=== PATIENT | male | born 1985 ===

== ENCOUNTER 2017-09-21 19:04 | Emergency (ER) | payer OTHER ==
[2017-09-21] MEDS ORDERED: Morphine 4 mg/ml ISec IVP STA (19:13)
[2017-09-21] MEDS ORDERED: Morphine 4 mg/ml ISec ONE (19:24)
--- NOTE | 2017-09-21 19:43 | ED PDOC ---
Arrival/HPI - General Time Seen by Provider: 09/21/17 19:13 Historian: Patient - History of Present Illness Narrative History of Present Illness (Text): 09/21/17 19:41 32yo male with no Past medical history bib EMS for left ankle injury s/p trauma. Patient states he injured his ankle minutes [employer] during skateboarding. He did not take any medication for pain. States he is unable to bear weight on the leg. Denies hitting his head any where. Denies LOC, focal weakness, any other complaint. Past Medical History - Provider Review Nursing Documentation Reviewed: Yes Family/Social History - Physician Review Nursing Documentation Reviewed: Yes Family/Social History: Unknown Family HX Allergies/Home Meds Allergies/Adverse Reactions: Allergies No Known Allergies Allergy (Verified 09/21/17 19:13) Review of Systems - Physician Review All systems were reviewed & negative as marked: Yes - Review of Systems Constitutional: Normal Eyes: Normal ENT: Normal Respiratory: Normal Cardiovascular: Normal Gastrointestinal: Normal Genitourinary Male: Normal Musculoskeletal: Arthralgias (LEft ankle) Skin: Normal Neurological: Normal Endocrine: Normal Hemo/Lymphatic: Normal Psychiatric: Normal Physical Exam Vital Signs Reviewed: Yes Vital Signs Temp Pulse Resp BP Pulse Ox 09/21/17 21:34 74 18 147/92 H 100 09/21/17 20:45 98.6 F 77 18 150/97 H 09/21/17 19:46 98.7 F 80 20 151/87 H 99 Temperature: Afebrile Blood Pressure: Normal Pulse: Regular Respiratory Rate: Normal Appearance: Positive for: Well-Appearing, Non-Toxic, Comfortable Pain Distress: None Mental Status: Positive for: Alert and Oriented X 3 - Systems Exam Head: Present: Atraumatic, Normocephalic Pupils: Present: PERRL Extroacular Muscles: Present: EOMI Conjunctiva: Present: Normal Mouth: Present: Moist Mucous Membranes Neck: Present: Normal Range of Motion Respiratory/Chest: Present: Clear to Auscultation, Good Air Exchange. No: Respiratory Distress, Accessory Muscle Use Cardiovascular: Present: Regular Rate and Rhythm, Normal S1, S2. No: Murmurs Abdomen: No: Tenderness, Distention, Peritoneal Signs Back: Present: Normal Inspection Upper Extremity: Present: Normal Inspection. No: Cyanosis, Edema Lower Extremity: Present: NORMAL PULSES, Tenderness (Left ankle), Deformity ( LEft ankle), Neurovascularly Intact, Other (Superficial abrasion noted over left lateral malleolus). No: Edema Neurological: Present: GCS=15, CN II-XII Intact, Speech Normal Skin: Present: Warm, Dry, Normal Color. No: Rashes Psychiatric: Present: Alert, Oriented x 3, Normal Insight, Normal Concentration Medical Decision Making ED Course and Treatment: 09/21/17 20:17 PT present with stated history. Deformed left ankle was noted and pt was seen on arrival. His pain was controlled with morphine in emergency department. He was neurologically intact. pedis/posterior pulse was intact. Abrasion cleansed and bacitracine applied and dressed Left ankle xray FINDINGS: Bones/joints: There is a dislocation of the midfoot and to the medial ankle. The tibiotalar articulation is. intact. The midfoot and forefoot are dislocated at the level of the navicular and cuboid are bones. No acute fractures are seen. Orthopedic consultation is recommended Soft tissues: Medial ankle edema is present. IMPRESSION: 1. LEFT Mid foot medial dislocation as described. 2. Negative for acute fracture. 3. Medial ankle soft tissue edema 09/21/17 20:55 Ankle dislocation was reduced using a conscious sedation. 20mg mg of etomidate was used and pt was monitored, hydrated and 3L of NC placed. Dislocation was reduced by Dr. White . S/p reduction he remained NVI. posterior/ pedis pulse remain intact. soft tissue swelling of ankle was noted. Joens wrap and Air cast was placed. On re evaluation he was AAO x3 and hemodynamically stable. Post reduction ankle xray ordered 09/21/17 21:20 09/21/17 21:37 Ankle dislocation looked reduced. Crutches given and pt was advised to RICE ankle and f/u with ortho - Lab Interpretations Lab Results: 09/21/17 19:20 09/21/17 19:20 Lab Results 09/21/17 19:20: PT 11.1, INR 0.97, APTT 31.3 09/21/17 19:20: Sodium 142, Potassium 3.8, Chloride 101, Carbon Dioxide 28, Anion Gap 16, BUN 18, Creatinine 1.0, Est GFR ( Amer) > 60, Est GFR (Non- Af Amer) > 60, Random Glucose 104, Calcium 9.1, Total Bilirubin 0.5, AST 56, ALT 49, Alkaline Phosphatase 74, Total Protein 8.2, Albumin 4.6, Globulin 3.6, Albumin/Globulin Ratio 1.3 09/21/17 19:20: WBC 9.4, RBC 4.80, Hgb 13.7 L, Hct 39.8 L, MCV 82.9, MCH 28.5, MCHC 34.4, RDW 12.7, Plt Count 259, MPV 10.5, Gran % 44.9 L, Lymph % (Auto) 41.7 H, [place] % (Auto) 8.1 H, Eos % (Auto) 4.8, Baso % (Auto) 0.5, Gran # 4.22, Lymph # (Auto) 3.9 H, [place] # (Auto) 0.8 H, Eos # (Auto) 0.5, Baso # (Auto) 0.05 - RAD Interpretation Radiology Orders: 09/21/17 19:22 ANKLE LEFT 3 VIEWS ROUTINE [RAD] Stat 09/21/17 19:23 TIBIA FIBULA LEFT [RAD] Stat 09/21/17 20:54 ANKLE LEFT 3 VIEWS ROUTINE [RAD] Stat - Medication Orders Current Medication Orders: Discontinued Medications Etomidate (Amidate) 15 mg IVP STAT STA Stop: 09/21/17 20:18 Etomidate (Amidate) 20 mg IVP STAT STA Stop: 09/21/17 20:18 Last Admin: 09/21/17 21:32 Dose: 20 mg IVP Administration Document 09/21/17 21:32 EQ (Rec: 09/21/17 21:32 EQ [id number]) Charges for Administration # of IVP Administrations 1 Morphine Sulfate (Morphine) 4 mg IVP STAT STA Stop: 09/21/17 19:14 Last Admin: 09/21/17 19:49 Dose: 4 mg MAR Pain Assessment Document 09/21/17 19:49 EQ (Rec: 09/21/17 19:50 EQ [id number]) Pain Reassessment Is this a pain reassessment? No Sleep Is patient sleeping during reassessment? No IVP Administration Document 09/21/17 19:49 EQ (Rec: 09/21/17 19:50 EQ [id number]) Charges for Administration # of IVP Administrations 1 Disposition/Present on Arrival - Present on Arrival Any Indicators Present on Arrival: No History of DVT/PE: No History of Uncontrolled Diabetes: No Urinary Catheter: No History of Decub. Ulcer: No History Surgical Site Infection Following: None - Disposition Have Diagnosis and Disposition been Completed?: Yes Diagnosis: Ankle dislocation Disposition: HOME/ ROUTINE Disposition Time: 21:40 Patient Plan: Discharge Patient Problems: Current Active Problems Problem Status Onset Ankle dislocation Acute Condition: STABLE Discharge Instructions (ExitCare): Ankle Dislocation Additional Instructions: Follow up with your doctor/orthopedist Rest, Ice, compress and elevate ankle Return to emergency department for any new or worsening symptoms Prescriptions: Ibuprofen [Motrin Tab] 600 mg PO Q6 #15 tab Referrals: PCP,NO [Primary Care Provider] - Follow up with primary Mumtaz Roth III, MD [Medical Doctor] - Follow up with primary Forms: WORK NOTE
[2017-09-21 19:47] LABS: BASO # 0.05 K/mm3 (0.0-2.0); BASO % 0.5 % (0.0-3.0); EOS # 0.5 (0.0-0.7); EOS % 4.8 % (1.5-5.0); GRAN # 4.22 (1.4-6.5); GRAN % 44.9 % (50.0-68.0); HEMOGLOBIN 13.7 g/dL (14.0-18.0); LYMPH # 3.9 (1.2-3.4); LYMPH % 41.7 % (22.0-35.0); MEAN CELL VOLUME 82.9 fl (80.0-105.0); MEAN CORPUSCULAR HEMOGLOBIN 28.5 pg (25.0-35.0); MEAN CORPUSCULAR HGB CONC 34.4 g/dl (31.0-37.0); MEAN PLATELET VOLUME 10.5 fl (7.0-11.0); MONO # 0.8 (0.1-0.6); MONO % 8.1 % (1.0-6.0); RBC 4.8 10^6/uL (3.5-6.1); RED CELL DISTRIBUTION WIDTH 12.7 % (11.5-14.5); WHITE BLOOD COUNT 9.4 10^3/ul (4.5-11.0)
[2017-09-21 19:52] VITALS: BMI 50.1
[2017-09-21 19:56] LABS: ALB/GLOB RATIO 1.3 (1.1-1.8); ALBUMIN 4.6 g/dL (3.0-4.8); ALT/SGPT 49 U/L (7-56); AST/SGOT 56 U/L (17-59); BLOOD UREA NITROGEN 18 mg/dL (7-21); CALCIUM 9.1 mg/dL (8.4-10.5); GFR AFRICAN-AMERICAN > 60; GFR NON-AFRICAN AMERICAN > 60
[2017-09-21 19:58] LABS: INR 0.97 (0.93-1.08); PARTIAL THROMBOPLASTIN TIME 31.3 Seconds (25.1-36.5); PROTHROMBIN TIME 11.1 SECONDS (9.4-12.5)
[2017-09-21] MEDS ORDERED: Etomidate 20 mg/10ml Inj IVP STA ×2 (20:17)
[2017-09-21] MEDS ORDERED: Etomidate 20 mg/10ml Inj IV ONE (20:33)
[2017-09-21 21:12] VITALS: RESP 18; TEMP 98.6
[2017-09-21 21:35] VITALS: BP 147/92; PULSE 74; O2SAT 100
--- NOTE | 2017-09-22 08:39 | RAD ---
PROCEDURE: Radiographs of the left tibia and fibula. HISTORY: leg pain s/p trauma COMPARISON: None available. TECHNIQUE: Frontal and lateral views obtained. FINDINGS: BONES: Bone alignment and mineralization are normal. There is no acute displaced fracture or bone destruction. JOINT SPACES: Unremarkable. OTHER FINDINGS: None. IMPRESSION: No acute fracture.
--- NOTE | 2017-09-22 08:40 | RAD ---
Date of service: 09/21/2017 PROCEDURE: Left Ankle Radiographs. HISTORY: left ankle pain s/p trauma COMPARISON: None FINDINGS: BONES: Bone alignment and mineralization are normal. No acute fracture JOINTS: There is dislocation of the subtalar joints with widening of the talonavicular joint space. SOFT TISSUES: Normal. OTHER FINDINGS: None. IMPRESSION: Subtalar dislocation.
--- NOTE | 2017-09-22 08:55 | RAD ---
Date of service: 09/21/2017 PROCEDURE: Left Ankle Radiographs. HISTORY: post op reduction COMPARISON: None FINDINGS: BONES: Bone alignment and mineralization are normal. There is cortical step-off in the medial talus. JOINTS: Status post reduction, there is near normal bone alignment. SOFT TISSUES: There is moderate periarticular soft tissue swelling and soft tissue emphysema. OTHER FINDINGS: None. IMPRESSION: Suspect nondisplaced fractures in the medial cortex of the talus. Status post reduction of subtalar dislocation, near normal bone alignment.
== END 2017-09-21 21:47 | disposition home or self-care (01) ==
LOC: ED 19:04
DX: S93.05XA Dislocation of left ankle joint, initial encounter (principal); Y93.51 Activity, roller skating (inline) and skateboarding
CPT/HCPCS: 27840; 73590; 73610; 80053; 85025; 85610; 85730; 96374; 99284; J2270